=== PATIENT | male | born 1980 | race Caucasian/White ===

== ENCOUNTER 2020-05-22 19:17 | Emergency (ER) | payer SELFPAY ==
[~2020-05-22] VITALS: Ht 172.7 cm; Wt 90.7 kg
[2020-05-22 19:20] VITALS: Ht 172.7 cm; Wt 90.7 kg
[2020-05-22 20:20] VITALS: BP 132/79
== END 2020-05-22 20:20 | disposition home or self-care (01) ==
LOC: ED 19:17
DX: B34.9 Viral infection, unspecified (principal); Z20.828 Contact with and (suspected) exposure to other viral communicable diseases; R03.0 Elevated blood-pressure reading, without diagnosis of hypertension
CPT/HCPCS: U0003